=== PATIENT | female | born 1995 | race Caucasian/White ===

== ENCOUNTER 2025-04-07 15:20 | Outpatient (CLI) | payer OTHER | END 2025-04-07 15:21 | disposition home or self-care (01) | LOC: CSHULT 15:20 | PROVIDERS: ATTEND Family Medicine | DX: Z34.82 Encounter for supervision of other normal pregnancy, second trimester (principal); Z3A.22 22 weeks gestation of pregnancy | CPT/HCPCS: 76805 ==